=== PATIENT | female | born 1940 | race Caucasian/White ===

== ENCOUNTER → 2016-11-09 | Outpatient (CLI) | payer MEDICARE, OTHER ==
--- NOTE | ~2016-11-09 | MR17 ---
[facility] A Service of [facility] RADIOLOGY TEXT RESULTS PATIENT: SARAH DAWKINS LOCATION: [facility] : 42 UNIT #: [id number] AGE: [address]: Dudley Saenz II, MD SEX: F ORDER DR: [id number] [place] [id number] MR#: [id number] Acc #: [id number] NAME: SARAH DAWKINS : 1940 SEX: F STUDY DATE/TIME: 11/09/2016 11:03 UNIT: [facility] ROOM: STUDY DESCRIPTION: MR Brain WWo Contrast Attending Physician: Dudley Saenz II., M.D. Referring Physician: Dudley Saenz II., M.D. Ordering Physician: Dudley Saenz II., M.D. Primary Care Physician: Vitaliy Hope M.D. MRI CENTER REPORT This report is preliminary unless electronic signature is present. EXAM Brain MRI with and without contrast HISTORY Increasing short-term memory loss over the past several years. Family history of dementia. TECHNIQUE Multiplanar imaging of the brain was performed with and without contrast. 12 mL of MultiHance was used. FINDINGS No recent infarcts are seen on diffusion-weighted imaging. The routine brain images show generalized atrophy with extensive chronic ischemic changes around the ventricles. Moderate chronic ischemic changes are also seen in the mid danyelle. No hemorrhages are seen. No mass lesions are noted. After contrast administration no abnormal enhancement is seen. Extraaxial structures are unremarkable. IMPRESSION Atrophy with extensive chronic ischemic changes around the ventricles. No acute findings. Dictated by... Cristóbal Galdamez M.D. THIS IS AN ELECTRONICALLY VERIFIED REPORT Cristóbal Galdamez M.D. at 11/13/2016 3:10 PM RLF/brian [facility] A Service [facility] RADIOLOGY TEXT RESULTS PATIENT: SARAH DAWKINS LOCATION: [facility] : 42 UNIT #: [id number] AGE: [address]: Dudley Saenz II, MD SEX: F ORDER DR: TD: 11/11/2016 23:01 JOB #: [id number] MRI CENTER REPORT Page 1 of 1
[2016-11-09 12:51] LABS: POC - CREATININE 0.75 mg/dL (0.44-1.03); POC - GFR >60.0 mL/min (>60)
== END | disposition home or self-care (01) ==
LOC: CMRI 11-08 13:00 → SMRI 11-08 13:00
PROVIDERS: Psychiatry & Neurology Neurology
DX: R41.3 Other amnesia (principal); G31.9 Degenerative disease of nervous system, unspecified
CPT/HCPCS: 70553; 82565; A9581